=== PATIENT | female | born 1980 | race Caucasian/White ===

== ENCOUNTER → 2023-05-02 10:04 | Outpatient (CLI) | payer OTHER, SELFPAY ==
--- NOTE | 2023-05-02 10:08 | DI.MG.S_ITS ---
BILATERAL DIGITAL SCREENING MAMMOGRAM 3D/2D WITH CAD: 05/02/2023 CLINICAL: Baseline exam. Routine screening. No prior exams were available for comparison. Both breasts are heterogeneously dense, which may obscure small masses (category c / 51-75% glandular tissue). Current study was also evaluated with a Computer Aided Detection (CAD) system. There is a round asymmetry in the right breast central to the nipple middle depth. There is a round asymmetry in the left breast central to the nipple middle depth. There also is a round asymmetry in the left breast at 1 o'clock anterior depth. No other significant masses or calcifications are seen in either breast. IMPRESSION: INCOMPLETE: NEEDS ADDITIONAL IMAGING EVALUATION The round asymmetry in the right breast central to the nipple middle depth is indeterminate. A diagnostic mammogram and ultrasound is recommended. The round asymmetry in the left breast central to the nipple middle depth most likely is a cyst and is indeterminate. A diagnostic mammogram and ultrasound is recommended. The round asymmetry in the left breast at 1 o'clock anterior depth most likely is a cyst and is indeterminate. A diagnostic mammogram and ultrasound is recommended. Based on the Tyrer Cuzick model (a risk assessment model) the patient's lifetime risk is 12.8% and her 10 year risk is 2.0%. According to the ACR, ACS, and NCCN guidelines, an annual breast MRI exam along with mammogram is recommended if the patient's lifetime risk is 20% or greater. This exam was interpreted at Station ID: [id number]. NOTE: For mammograms, a report in lay terms will be sent to the patient. Approximately 15% of breast malignancies will not be visualized mammographically. In the management of a palpable breast mass, a negative mammogram must not discourage biopsy of a clinically suspicious lesion. Electronically Signed By: Maggy peralta/jessica:05/04/2023 10:19:42 letter sent: Additional Imaging Needed ACR BI-RADS Category 0: Incomplete 3340F
== END ==
PROVIDERS: Referring Provider Nurse Practitioner Family; Visit Provider Nurse Practitioner Family
DX: Z12.31 Encounter for screening mammogram for malignant neoplasm of breast (principal)
CPT/HCPCS: 77063; 77067

== ENCOUNTER → 2023-05-07 07:44 | Outpatient (CLI) | payer OTHER, SELFPAY ==
--- NOTE | 2023-05-07 | DI.US.S_ITS ---
LIMITED ULTRASOUND OF RIGHT BREAST: 05/07/2023 CLINICAL: Patient returns today to evaluate a focal asymmetry in the right breast. Comparison is made to exams dated: 05/07/2023 mammogram and 05/02/2023 mammogram - [facility]. Color flow and real-time ultrasound of the right breast 12 o'clock region were performed. Slater scale images of the real-time examination were reviewed. There is a benign 0.6 cm x 0.5 cm x 0.4 cm oval mass with a circumscribed margin in the right breast at 12 o'clock middle depth 5 cm from the nipple. This oval mass is hypoechoic with posterior acoustic enhancement. This correlates with mammography findings. Color flow imaging demonstrates that there is no vascularity present. IMPRESSION: BENIGN There is no sonographic evidence of malignancy. The 0.6 cm circumscribed mass in the right breast resembles a fibroadenoma. Multiple bilateral circumscribed masses are benign. A 1 year screening mammogram is recommended. Exam findings were conveyed to the patient. This exam was interpreted at Station ID: [id number]. Electronically Signed By: Matt Johnson M.D. [facility] [place]/:05/07/2023 09:25:26 letter sent: Normal Exam Ultrasound BI-RADS: 2 Benign
--- NOTE | 2023-05-07 | DI.US.S_ITS ---
LIMITED ULTRASOUND OF LEFT BREAST AND AXILLA: 05/07/2023 CLINICAL: Patient returns today to evaluate a focal asymmetries in the left breast. Comparison is made to exams dated: 05/07/2023 mammogram and 05/02/2023 mammogram - [facility]. Color flow and real-time ultrasound of the left breast were performed. Slater scale images of the real-time examination were reviewed. There is a benign 1.2 cm x 1.1 cm x 1 cm oval mass with a circumscribed margin in the left breast at 12 o'clock anterior depth 2 cm from the nipple. This oval mass is hypoechoic with posterior acoustic enhancement. This correlates with mammography findings. Color flow imaging demonstrates that there is no vascularity present. There also is a benign 2.6 cm x 2.5 cm x 1.4 cm oval simple cyst in the left breast at 3 o'clock middle depth 3 cm from the nipple. This oval simple cyst is anechoic. This correlates with mammography findings. Color flow imaging demonstrates that there is no vascularity present. IMPRESSION: BENIGN There is no sonographic evidence of malignancy. The 1.2 cm circumscribed mass in the left breast at 12 o'clock anterior depth resembles a fibroadenoma. The 2.6 cm simple cyst in the left breast at 3 o'clock middle depth is benign. Multiple bilateral circumscribed masses are benign. Exam findings were conveyed to the patient. Patient is advised to monitor for significant change. A 1 year screening mammogram is recommended. This exam was interpreted at Station ID: [id number]. Electronically Signed By: Matt Johnson M.D. [facility] [place]/:05/07/2023 09:32:08 letter sent: Normal Exam Ultrasound BI-RADS: 2 Benign
--- NOTE | 2023-05-07 | DI.MG.S_ITS ---
BILATERAL DIGITAL DIAGNOSTIC MAMMOGRAM 3D/2D: 05/07/2023 CLINICAL: Additional evaluation requested from prior study. Comparison is made to exam dated: 05/02/2023 mammogram - [facility]. Both breasts are heterogeneously dense, which may obscure small masses (category c / 51-75% glandular tissue). There is a round focal asymmetry with a circumscribed margin in the right breast central to the nipple middle depth. There is a round focal asymmetry in the left breast central to the nipple middle depth. There also is a round focal asymmetry with a circumscribed margin in the left breast at 1 o'clock anterior depth. No other significant masses or calcifications are seen in either breast. IMPRESSION: INCOMPLETE: NEEDS ADDITIONAL IMAGING EVALUATION The round focal asymmetry in the right breast central to the nipple middle depth is indeterminate. The round focal asymmetry in the left breast central to the nipple middle depth most likely is a cyst and is indeterminate. The round focal asymmetry in the left breast at 1 o'clock anterior depth is indeterminate. A targeted ultrasound is recommended and will immediately follow. Based on the Tyrer Cuzick model (a risk assessment model) the patient's lifetime risk is 12.8% and her 10 year risk is 2.0%. According to the ACR, ACS, and NCCN guidelines, an annual breast MRI exam along with mammogram is recommended if the patient's lifetime risk is 20% or greater. This exam was interpreted at Station ID: [id number]. NOTE: For mammograms, a report in lay terms will be sent to the patient. Approximately 15% of breast malignancies will not be visualized mammographically. In the management of a palpable breast mass, a negative mammogram must not discourage biopsy of a clinically suspicious lesion. Electronically Signed By: Matt Johnson M.D. [facility]/:05/07/2023 09:20:58 ACR BI-RADS Category 0: Incomplete 3340F
== END ==
PROVIDERS: PCP Nurse Practitioner Family; Referring Provider Nurse Practitioner Family; Visit Provider Nurse Practitioner Family
DX: R92.8 Other abnormal and inconclusive findings on diagnostic imaging of breast (principal); N63.25 Unspecified lump in the left breast, overlapping quadrants; N60.02 Solitary cyst of left breast; N63.15 Unspecified lump in the right breast, overlapping quadrants
CPT/HCPCS: 76642; 77066; G0279